=== PATIENT | female | born 1995 | race Hispanic/Latino ===

== ENCOUNTER 2021-12-20 14:31 | Emergency (ER) | payer OTHER ==
[~2021-12-20] VITALS: Ht 154.9 cm; Wt 56.2 kg
[2021-12-20 14:32] VITALS: BP 120/70
[2021-12-20] MEDS ORDERED: ACETAMINOPHEN 325 MG TAB PO ONE (15:00)
[2021-12-20] MEDS ORDERED: IBUP-2070 PO (15:49)
[2021-12-20] MEDS ORDERED: ONDANSETRON ODT 4MG TAB SL ONE (16:00)
== END 2021-12-20 16:08 | disposition home or self-care (01) ==
LOC: EDH 14:31
DX: O9A.211 Injury, poisoning and certain other consequences of external causes complicating pregnancy, first trimester (principal); S39.91XA Unspecified injury of abdomen, initial encounter; Z3A.01 Less than 8 weeks gestation of pregnancy; X58.XXXA Exposure to other specified factors, initial encounter; Y93.89 Activity, other specified; Y92.89 Other specified places as the place of occurrence of the external cause; Y99.8 Other external cause status
CPT/HCPCS: 76700; 76801